=== PATIENT | female | born 1990 | race Two or more races ===

== ENCOUNTER 2019-11-21 20:16 | Inpatient (IN) | payer MEDICAID ==
[~2019-11-21] VITALS: Ht 149.9 cm; Wt 66.2 kg
[2019-11-21] MEDS ORDERED: NALBUPHINE 10 MG/ML AMP IVP PRN (20:45)
[2019-11-21] MEDS ORDERED: PROMETHAZINE 25 MG/ML VIAL IVP PRN (20:45)
[2019-11-21] MEDS ORDERED: METHYLERGONOVINE 0.2 MG/ML AMP IM PRN (20:45)
[2019-11-21] MEDS ORDERED: MISOPROSTOL 25 MCG TAB VG SCH (21:15)
[2019-11-21] MEDS ORDERED: OXYTOCIN 20 UNITS in LACTATED RINGERS 1,000 ML IV SCH (21:15)
[2019-11-21 21:35] LABS: APPEARANCE,URINE CLEAR (CLEAR); BILIRUBIN,URINE NEGATIVE (NEGATIVE); BLOOD, URINE NEGATIVE (NEGATIVE); COLOR,URINE ORANGE (YELLOW); LEUKOCYTE ESTERASE ,URINE TRACE (NEGATIVE); NITRITE, URINE NEGATIVE (NEGATIVE); PH,URINE 6.5 (5.0-9.0); UGLUCOSE NEGATIVE (NEGATIVE)
[2019-11-21 21:35] LABS: BASOPHILS % (AUTO) 0.3 % (0.0-2.0); EOSINOPHILS % (AUTO) 0.4 % (0.0-4.0); HEMATOCRIT 37.2 % (36-48); HEMOGLOBIN 13.1 g/dL (12.0-16.0); LYMPHOCYTES # (AUTO) 1.5 K/uL (2.5-16.5); LYMPHOCYTES % (AUTO) 29.8 % (20.5-51.1); MEAN CORPUSCULAR HEMOGLOBIN 34 pg (27-31); MEAN CORPUSCULAR HGB CONC 35 g/dL (33-37); MEAN CORPUSCULAR VOLUME 96.1 fL (80-94); MONOCYTES # (AUTO) 0.4 K/uL (0.8-1.0); NEUTROPHILS # (AUTO) 3.1 K/uL (1.8-7.7); NEUTROPHILS % (AUTO) 61.5 % (42.2-75.2); PLATELET COUNT (AUTO) 235 K/uL (140-450); RED BLOOD CELL COUNT(AUTO) 3.87 MIL/uL (4.20-5.40); RED CELL DISTRIBUTION WIDTH 13.8 % (11.6-13.7); WHITE BLOOD COUNT (AUTO) 5.1 K/uL (4.8-10.8)
[2019-11-21 21:44] LABS: RBC,URINE NONE SEEN /HPF (0-5); WBC,URINE 0-5 /HPF (0-5)
[2019-11-21 21:45] LABS: ANION GAP 14.7 (8-16); CARBON DIOXIDE 21.8 mmol/L (21-32); CREATININE 0.5 mg/dL (0.6-1.3); POTASSIUM 3.5 mmol/L (3.5-5.1)
[2019-11-21 21:51] LABS: ALBUMIN 2.4 g/dL (3.4-5.0); TOTAL BILIRUBIN 0.6 mg/dL (0.0-1.0)
[2019-11-21] MEDS ORDERED: MISOPROSTOL 25 MCG TAB VG PRN (22:00)
[2019-11-21] MEDS: LACTATED RINGERS 1,000 ML IV SCH (22:12)
[2019-11-21] MEDS ORDERED: MISOPROSTOL 25 MCG TAB ONE (22:14)
[2019-11-21] MEDS ORDERED: PREN-380 PO (23:05)
[2019-11-21 23:07] VITALS: BP 104/60
[2019-11-22] MEDS: LACTATED RINGERS 1,000 ML IV SCH ×3 (06:25→10:30)
[2019-11-22] MEDS ORDERED: EPIDURAL KEYS MC ONE (07:45)
[2019-11-22] MEDS ORDERED: ROPIVACAINE 0.2%/NS PREMIX 100 ML EPI ONE (08:45)
--- NOTE | 2019-11-22 08:55 | NUR ---
PATIENT IS SCREENED AND CATEGORIZED LOW NUTRITION RISK. PATIENT WILL BE SEEN WITHIN 5-7 DAY OF ADMISSION. 11/26/2019-11/28/[address]
[2019-11-22] MEDS ORDERED: ROPIVACAINE 0.2%/NS PREMIX 100 ML EPI SCH (09:30)
[2019-11-22] MEDS ORDERED: OXYTOCIN 20 UNITS/LR PREMIX 1,000 ML IV ONE (14:16)
[2019-11-22] MEDS ORDERED: OXYTOCIN 20 UNITS in LACTATED RINGERS 1,000 ML IV SCH ×2 (14:25→21:15)
[2019-11-22] MEDS ORDERED: BENZOCAINE/MENTHOL 20%-0.5% 60 GM CAN TP PRN (17:20)
[2019-11-22] MEDS ORDERED: METHYLERGONOVINE 0.2 MG/ML AMP IM PRN (17:20)
[2019-11-22] MEDS: IBUPROFEN 600 MG TAB PO PRN ×2 (18:03→21:16)
[2019-11-22] MEDS ORDERED: DOCUSATE SOD/SENNA 50/8.6 MG 1 TAB PO SCH (21:00)
[2019-11-22] MEDS: IBUPROFEN 600 MG TAB ONE (21:13)
[2019-11-23] MEDS: IBUPROFEN 600 MG TAB PO PRN (04:17)
[2019-11-23 05:51] LABS: HEMATOCRIT 32.5 % (36-48); HEMOGLOBIN 11.3 g/dL (12.0-16.0)
[2019-11-23] MEDS: IBUPROFEN 600 MG TAB ONE (14:17)
== END 2019-11-24 12:21 | disposition home or self-care (01) | DRG 560 ==
LOC: MLD 20:16 → MFCC 11-22 18:05
PROVIDERS: ADMIT Obstetrics & Gynecology; ATTEND Obstetrics & Gynecology
PROC: 10E0XZZ Delivery of Products of Conception, External Approach (ICD-10-PCS; principal; 2019-11-22)
PROC: 3E0P7VZ Introduction of Hormone into Female Reproductive, Via Natural or Artificial Opening (ICD-10-PCS; 2019-11-22)
PROC: 00HU33Z Insertion of Infusion Device into Spinal Canal, Percutaneous Approach (ICD-10-PCS; 2019-11-22)
PROC: 3E0R3BZ Introduction of Anesthetic Agent into Spinal Canal, Percutaneous Approach (ICD-10-PCS; 2019-11-22)
PROC: 3E0234Z Introduction of Serum, Toxoid and Vaccine into Muscle, Percutaneous Approach (ICD-10-PCS; 2019-11-23)
DX: O26.62 Liver and biliary tract disorders in childbirth (principal); K83.1 Obstruction of bile duct; O45.93 Premature separation of placenta, unspecified, third trimester; Z37.0 Single live birth; Z3A.37 37 weeks gestation of pregnancy; Z23 Encounter for immunization
CPT/HCPCS: 36415; 59200; 59409; 80053; 81001; 82948; 85018; 85025; 86592; 86886; 86900; 86901; 88307; 90715; J2300; J2590; J2795; J7120